=== PATIENT | female | born 1990 | race Caucasian/White ===

== ENCOUNTER 2022-09-26 18:24 | Emergency (ER) | payer BC ==
[2022-09-26 19:13] VITALS: BP 120/68; PULSE 73; RESP 16; TEMP 98.7; BMI 20.1
[2022-09-26] MEDS ORDERED: FLUORESCEIN NA 1 EA STRIP ONE (19:14)
[2022-09-26] MEDS ORDERED: TETRACAINE 0.5% OPHTH SOLN 2 ML BOTTLE ONE (19:14)
[2022-09-26] MEDS ORDERED: TOBRAMYCIN 0.3% OPHTH SOLN 5 ML BOTTLE OD ONE (19:44)
[2022-09-26] MEDS ORDERED: TOBRAMYCIN 0.3% OPHTH SOLN 5 ML BOTTLE ONE (19:48)
== END 2022-09-26 19:57 | disposition home or self-care (01) ==
LOC: FER 18:24
DX: H57.89 Other specified disorders of eye and adnexa (principal)
CPT/HCPCS: 99283-25

== ENCOUNTER 2023-07-08 08:54 | Emergency (ER) | payer BC ==
[2023-07-08] MEDS ORDERED: SODIUM CHLORIDE 0.9% 500 ML INFUS.BAG IV ONE (08:57)
[2023-07-08] MEDS ORDERED: METOCLOPRAMIDE HCL INJECTION 10 MG/2 ML VIAL IVPUSH ONE (09:04)
[2023-07-08] MEDS ORDERED: diphenhydrAMINE HCL 25 MG CAPSULE (FP) PO ONE (09:06)
[2023-07-08] MEDS ORDERED: METOCLOPRAMIDE HCL INJECTION 10 MG/2 ML VIAL ONE ×2 (09:24→09:25)
[2023-07-08 09:28] LABS: HEMATOCRIT 38.5 % (32.4-45.2); MCH 31.2 pg (25.7-33.7); MCHC 33.7 g/dl (32.0-36.0); MEAN CELL VOLUME 92.5 fl (80-96); MEAN PLT VOLUME 8.6 fl (7.5-11.1); PLATELET COUNT 178.1 10^3/uL (134-434); RBC 4.16 10^6/uL (3.60-5.2); RDW 13.7 % (11.6-15.6); WHITE BLOOD COUNT 6.2 10^3/uL (4.0-10.8)
[2023-07-08 09:42] LABS: EPITHELIAL CELLS 21-50 /hpf
[2023-07-08 09:46] LABS: ALBUMIN 4.3 g/dl (3.4-5.0); BILIRUBIN,TOTAL 0.6 mg/dl (0.2-1); CALCIUM 9.4 mg/dl (8.5-10.1); TOT PROT 6.7 g/dl (6.4-8.2)
[2023-07-08] MEDS ORDERED: PYRIDOXINE HCL (B-6) 50 MG TABLET (FP) PO ONE (10:00)
[2023-07-08 10:12] VITALS: BP 113/79; PULSE 67; RESP 18; TEMP 98; BMI 20.1
[2023-07-08] MEDS ORDERED: DEXTROSE 5%-0.45% SALINE 1,000 ML IV SCH (10:15)
== END 2023-07-08 11:43 | disposition home or self-care (01) ==
LOC: FER 08:54
PROC: 3E033GC Introduction of Other Therapeutic Substance into Peripheral Vein, Percutaneous Approach (ICD-10-PCS; principal; 2023-07-08)
PROC: 3E033GC Introduction of Other Therapeutic Substance into Peripheral Vein, Percutaneous Approach (ICD-10-PCS; 2023-07-08)
PROC: 3E033GC Introduction of Other Therapeutic Substance into Peripheral Vein, Percutaneous Approach (ICD-10-PCS; 2023-07-08)
DX: O21.0 Mild hyperemesis gravidarum (principal); O26.891 Other specified pregnancy related conditions, first trimester; R11.0 Nausea; Z3A.00 Weeks of gestation of pregnancy not specified
CPT/HCPCS: 36415; 80053; 81003; 81015; 84702; 85027; 87086; 99284-25

== ENCOUNTER 2023-07-30 20:35 | Emergency (ER) | payer BC ==
[2023-07-30] MEDS ORDERED: SODIUM CHLORIDE 0.9% 1000 ML INFUS.BAG IV ONE (20:51)
[2023-07-30] MEDS ORDERED: METOCLOPRAMIDE HCL INJECTION 10 MG/2 ML VIAL IVPUSH ONE (21:12)
[2023-07-30 21:22] VITALS: BP 116/71; PULSE 66; RESP 16; TEMP 98.9; BMI 19.7
[2023-07-30] MEDS ORDERED: METOCLOPRAMIDE HCL INJECTION 10 MG/2 ML VIAL ONE (21:27)
[2023-07-30 21:30] LABS: HEMATOCRIT 35.6 % (32.4-45.2); HEMOGLOBIN 12.3 G/dL (10.7-15.3); MCH 31.9 pg (25.7-33.7); MCHC 34.6 g/dl (32.0-36.0); MEAN CELL VOLUME 92.1 fl (80-96); MEAN PLT VOLUME 8.9 fl (7.5-11.1); PLATELET COUNT 207.3 10^3/uL (134-434); RBC 3.86 10^6/uL (3.60-5.2); RDW 13.5 % (11.6-15.6); WHITE BLOOD COUNT 7.7 10^3/uL (4.0-10.8)
[2023-07-30 21:39] LABS: PLATELET ESTIMATE ADEQUATE
[2023-07-30 21:45] LABS: BILIRUBIN,TOTAL 0.2 mg/dl (0.2-1); CALCIUM 9.4 mg/dl (8.5-10.1); CREATININE 0.9 mg/dl (0.6-1.3); POTASSIUM 4.4 mmol/L (3.5-5.1); TOT PROT 6.5 g/dl (6.4-8.2)
== END 2023-07-30 22:16 | disposition home or self-care (01) ==
LOC: FER 20:35
PROC: 3E033NZ Introduction of Analgesics, Hypnotics, Sedatives into Peripheral Vein, Percutaneous Approach (ICD-10-PCS; principal; 2023-07-30)
DX: O21.9 Vomiting of pregnancy, unspecified (principal); Z3A.09 9 weeks gestation of pregnancy
CPT/HCPCS: 36415; 76815; 80053; 81003; 85027; 99284-25